=== PATIENT | male | born 2000 | race African-American/Black ===

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

== ENCOUNTER 2021-06-07 07:47 | Outpatient (CLI) | payer BC | END 2021-06-07 07:48 | disposition home or self-care (01) | LOC: SCSMRI 07:47 | PROVIDERS: ATTEND Family Medicine | DX: M51.16 Intervertebral disc disorders with radiculopathy, lumbar region (principal) | CPT/HCPCS: 72148 ==